=== PATIENT | female | born 1945 | race Caucasian/White ===

== ENCOUNTER 2016-06-06 01:54 | Emergency (ER) | payer BC, OTHER ==
[~2016-06-06] VITALS: Ht 167.6 cm; Wt 81.6 kg
[~2016-06-06 01:54] MED LIST: INSU100I20 SQ; INSU200I SQ
[2016-06-06 02:02] VITALS: BP 151/99; PULSE 116; RESP 15; TEMP 97.9; O2SAT 99
--- NOTE | 2016-06-06 03:05 | NUR ---
Placed in room 2 . Placed on rotoprinter, blood pressure machine and pulse oximeter. To gown for exam. Side rails up.
--- NOTE | 2016-06-06 03:10 | NUR ---
Pt presents to ED for medical clearance, pt stated she took 28 units of humalog instead of Rx dose of 14. A&Ox4, denies SOB or chestpain, denies N/V/D. Skin dry and intact. Will continue to monitor
--- NOTE | 2016-06-06 03:55 | NUR ---
MD Gomez at bedside examining pt
[2016-06-06 04:32] VITALS: BP 146/87; PULSE 97; RESP 16; TEMP 97.6; O2SAT 98
--- NOTE | 2016-06-06 04:32 | NUR ---
Patient given written and verbal discharge instructions and verbalizes understanding. ER MD Gomez discussed with patient the results and treatment provided. Patient in stable condition. ID arm band removed. No Rx given. Patient educated on pain management and to follow up with PMD. Pain Scale 0/10 Opportunity for questions provided and answered.
== END 2016-06-06 04:32 | disposition home or self-care (01) ==
LOC: SED 01:54
DX: T38.3X1A Poisoning by insulin and oral hypoglycemic [antidiabetic] drugs, accidental (unintentional), initial encounter (principal); E11.9 Type 2 diabetes mellitus without complications; I48.91 Unspecified atrial fibrillation; Z88.0 Allergy status to penicillin; Z79.4 Long term (current) use of insulin; Y92.89 Other specified places as the place of occurrence of the external cause
CPT/HCPCS: 82962; 99282

== ENCOUNTER 2016-11-23 18:07 | Inpatient (IN) | payer BC, OTHER ==
[~2016-11-23] VITALS: Ht 165.1 cm; Wt 81.6 kg
[2016-11-23 18:15] VITALS: BP_SYST 127
[2016-11-23] MEDS ORDERED: MORPHINE 4 MG/ML INJ. SYRINGE IVP ONE (18:45)
[2016-11-23] MEDS ORDERED: DIPHENHYDRAMINE INJ 50 MG/ML VIAL IVP ONE (18:45)
[2016-11-23] MEDS ORDERED: VANCOMYCIN HCL 1,000 MG in NS 250 ML IV ONE (18:45)
[2016-11-23 19:15] LABS: BILIRUBIN,URINE NEGATIVE (NEGATIVE); BLOOD, URINE NEGATIVE (NEGATIVE); CLARITY/URINE CLEAR (CLEAR); COLOR,URINE YELLOW (YELLOW); GLUCOSE,URINE 3+ (NEGATIVE); KETONES,URINE 1+ (NEGATIVE); LEUKOCYTE ESTERASE ,URINE NEGATIVE (NEGATIVE); NITRITE, URINE NEGATIVE (NEGATIVE); PROTEIN URINE NEGATIVE (NEGATIVE); UROBILINOGEN,URINE 0.2 (0.2-1.0)
[2016-11-23] MEDS ORDERED: VANCOMYCIN HCL 1000 MG/VIAL IV ONE ×2 (19:23→19:31)
[2016-11-23 19:42] LABS: RBC,URINE NONE SEEN /HPF (0-3)
[2016-11-23 19:43] LABS: BACTERIA,URINE MANY /HPF (None Seen); MUCUS,URINE None Seen /LPF (None Seen); YEAST,URINE Moderate /HPF (None Seen)
[2016-11-23 19:46] LABS: BASOPHILS % (AUTO) 0.2 % (0.0-2.0); EOSINOPHILS % (AUTO) 0.1 % (0.0-4.0); HEMATOCRIT 34.7 % (36-48); HEMOGLOBIN 11.6 g/dL (12.0-16.0); LYMPHOCYTES # (AUTO) 0.7 K/uL (1.0-5.5); MEAN CORPUSCULAR HEMOGLOBIN 32 pg (27-31); MEAN CORPUSCULAR HGB CONC 33 % (32-36); MEAN CORPUSCULAR VOLUME 96 fL (79.0-98.0); MONOCYTES # (AUTO) 0.7 K/uL (0.0-1.0); MONOCYTES % (AUTO) 4.9 % (1.7-9.3); NEUTROPHILS % (AUTO) 89.8 % (40.0-70.0); PLATELET COUNT (AUTO) 134 K/uL (130-430); RED BLOOD CELL COUNT(AUTO) 3.62 MIL/uL (4.2-6.2); RED CELL DISTRIBUTION WIDTH 12.2 % (9.0-15.0); WHITE BLOOD COUNT (AUTO) 14.4 K/uL (4.8-10.8)
[2016-11-23 20:04] LABS: ALANINE AMINOTRANSFERASE 21 U/L (12-78); ALBUMIN 2.9 g/dL (3.4-4.8); ANION GAP 11 (5-15); ASPARTATE AMINOTRANSFERASE 14 U/L (10-37); CALCIUM 8.3 mg/dL (8.4-11.0); CHLORIDE 103 mmol/L (98-107); CREATININE 1.71 mg/dL (0.55-1.30); LIPASE 169 U/L (73-393); POTASSIUM 3.8 mmol/L (3.5-5.1); SODIUM SERUM 135 mmol/L (136-145); TOTAL BILIRUBIN 1.7 mg/dL (0.0-1.0)
[2016-11-23 20:06] LABS: INR 1.2 (0.8-1.2); PROTHROMBIN TIME 13.1 SECS (9.5-12.5)
[2016-11-23] MEDS ORDERED: RIVA15TA PO (20:13)
[2016-11-23] MEDS ORDERED: METO50TA7 PO (20:13)
[2016-11-23] MEDS ORDERED: MECL12.584 PO (20:13)
[2016-11-23] MEDS ORDERED: FLEC50TA2 PO (20:13)
[2016-11-23] MEDS ORDERED: LORA10TA7 PO (20:13)
[2016-11-23] MEDS ORDERED: VERA120C2 PO (20:13)
[2016-11-23 20:27] LABS: GLUCOSE 524 mg/dL (70-99)
[2016-11-23] MEDS ORDERED: NACL 0.9% 1,000 ML IV ONE (20:30)
[2016-11-23] MEDS ORDERED: INSULIN REGULAR, HUMAN 10 UNITS/0.1 ML INJ IVP ONE (20:30)
[2016-11-23 20:52] LABS: UREA NITROGEN, BLOOD 33 mg/dL (8-21)
[2016-11-23 21:35] VITALS: BP_SYST 125
[2016-11-23] MEDS: NORMAL SALINE 5 ML DISP.SYRIN IVF SCH (23:03)
[2016-11-23 23:30] VITALS: BP_SYST 131
[2016-11-23] MEDS: INSULIN ASPART 100 UNITS/ML, 10 ML VIAL (NovoLOG) SUBCUT PRN (23:57)
[2016-11-24 04:02] VITALS: BP_SYST 135
[2016-11-24] MEDS: NORMAL SALINE 5 ML DISP.SYRIN IVF SCH ×3 (06:43→21:59)
[2016-11-24] MEDS: INSULIN ASPART 100 UNITS/ML, 10 ML VIAL (NovoLOG) SUBCUT PRN ×3 (06:47→17:41)
[2016-11-24 08:46] VITALS: BP_SYST 134
[2016-11-24] MEDS: VERAPAMIL HCL 120 MG TABLET.SA PO SCH (08:53)
[2016-11-24] MEDS: METOPROLOL SUCCINATE 50 MG TAB.SR.24H (TOPROL XL) PO SCH (08:53)
[2016-11-24 09:47] LABS: BASOPHILS # (AUTO) 0.1 K/uL (0.0-0.2); BASOPHILS % (AUTO) 0.6 % (0.0-2.0); EOSINOPHILS % (AUTO) 0.2 % (0.0-4.0); HEMATOCRIT 36.1 % (36-48); HEMOGLOBIN 12.2 g/dL (12.0-16.0); LYMPHOCYTES # (AUTO) 0.8 K/uL (1.0-5.5); LYMPHOCYTES % (AUTO) 5.3 % (20.5-51.5); MEAN CORPUSCULAR HEMOGLOBIN 32 pg (27-31); MEAN CORPUSCULAR HGB CONC 34 % (32-36); MEAN CORPUSCULAR VOLUME 95 fL (79.0-98.0); MONOCYTES # (AUTO) 1.1 K/uL (0.0-1.0); MONOCYTES % (AUTO) 6.8 % (1.7-9.3); NEUTROPHILS # (AUTO) 13.7 K/uL (1.8-7.7); NEUTROPHILS % (AUTO) 87.1 % (40.0-70.0); PLATELET COUNT (AUTO) 126 K/uL (130-430); RED CELL DISTRIBUTION WIDTH 12.3 % (9.0-15.0)
[2016-11-24 09:48] LABS: WHITE BLOOD COUNT (AUTO) 15.7 K/uL (4.8-10.8)
[2016-11-24 09:54] LABS: ALANINE AMINOTRANSFERASE 20 U/L (12-78); ALBUMIN 2.7 g/dL (3.4-4.8); ASPARTATE AMINOTRANSFERASE 14 U/L (10-37); CALCIUM 8.6 mg/dL (8.4-11.0); CHLORIDE 106 mmol/L (98-107); GLUCOSE 350 mg/dL (70-99); POTASSIUM 3.7 mmol/L (3.5-5.1); SODIUM SERUM 137 mmol/L (136-145); TOTAL BILIRUBIN 1.5 mg/dL (0.0-1.0); UREA NITROGEN, BLOOD 22 mg/dL (8-21)
[2016-11-24 09:58] LABS: ANION GAP 8 (5-15)
[2016-11-24] MEDS: RIVAROXABAN 15 MG TABLET PO SCH (11:40)
[2016-11-24 15:24] VITALS: BP_SYST 115
[2016-11-24] MEDS: CEFEPIME 1 GM in D5W 50 ML IV SCH (16:22)
[2016-11-24] MEDS: VANCOMYCIN HCL 1,250 MG in NS 250 ML IV SCH (17:36)
[2016-11-24 19:40] VITALS: BP_SYST 110
[2016-11-25] VITALS: BP_SYST 109
[2016-11-25] MEDS: INSULIN ASPART 100 UNITS/ML, 10 ML VIAL (NovoLOG) SUBCUT PRN ×5 (00:22→23:46)
[2016-11-25] MEDS: CEFEPIME 1 GM in D5W 50 ML IV SCH ×2 (03:18→15:12)
[2016-11-25 04:00] VITALS: BP_SYST 136
[2016-11-25] MEDS: NORMAL SALINE 5 ML DISP.SYRIN IVF SCH ×3 (06:57→22:31)
[2016-11-25 08:15] VITALS: BP_SYST 126
[2016-11-25] MEDS: METOPROLOL SUCCINATE 50 MG TAB.SR.24H (TOPROL XL) PO SCH (08:31)
[2016-11-25] MEDS: VERAPAMIL HCL 120 MG TABLET.SA PO SCH (08:31)
[2016-11-25 10:00] VITALS: BP_SYST 126
[2016-11-25] MEDS ORDERED: LR 1,000 ML IV SCH (11:14)
[2016-11-25] MEDS ORDERED: MEPERIDINE HCL/PF 25 MG/ML DISP.SYRIN IVP PRN (11:15)
[2016-11-25] MEDS ORDERED: HYDROmorphone 1 MG INJ. 1 MG/ML AMPUL IVP PRN (11:15)
[2016-11-25] MEDS ORDERED: HYDROmorphone 2 MG/ML VIAL IVP PRN ×2 (11:15)
[2016-11-25 12:15] VITALS: BP_SYST 137
[2016-11-25] MEDS: RIVAROXABAN 15 MG TABLET PO SCH (12:29)
[2016-11-25] MEDS: VANCOMYCIN HCL 1,250 MG in NS 250 ML IV SCH (17:53)
[2016-11-25 20:00] VITALS: BP_SYST 111
[2016-11-26 01:21] VITALS: BP_SYST 137
[2016-11-26] MEDS: CEFEPIME 1 GM in D5W 50 ML IV SCH ×2 (02:40→14:32)
[2016-11-26 03:41] VITALS: BP_SYST 140
[2016-11-26] MEDS: INSULIN ASPART 100 UNITS/ML, 10 ML VIAL (NovoLOG) SUBCUT PRN ×3 (05:15→17:18)
[2016-11-26] MEDS: NORMAL SALINE 5 ML DISP.SYRIN IVF SCH ×3 (05:16→22:10)
[2016-11-26 06:41] LABS: BASOPHILS % (AUTO) 0.4 % (0.0-2.0); EOSINOPHILS # (AUTO) 0.1 K/uL (0.0-0.4); EOSINOPHILS % (AUTO) 1.1 % (0.0-4.0); HEMATOCRIT 33.4 % (36-48); HEMOGLOBIN 11.1 g/dL (12.0-16.0); LYMPHOCYTES # (AUTO) 1.1 K/uL (1.0-5.5); LYMPHOCYTES % (AUTO) 12.6 % (20.5-51.5); MEAN CORPUSCULAR HEMOGLOBIN 32 pg (27-31); MEAN CORPUSCULAR HGB CONC 33 % (32-36); MONOCYTES # (AUTO) 0.7 K/uL (0.0-1.0); MONOCYTES % (AUTO) 7.5 % (1.7-9.3); NEUTROPHILS # (AUTO) 7.2 K/uL (1.8-7.7); NEUTROPHILS % (AUTO) 78.4 % (40.0-70.0); PLATELET COUNT (AUTO) 154 K/uL (130-430); RED BLOOD CELL COUNT(AUTO) 3.44 MIL/uL (4.2-6.2); RED CELL DISTRIBUTION WIDTH 12.3 % (9.0-15.0); WHITE BLOOD COUNT (AUTO) 9.1 K/uL (4.8-10.8)
[2016-11-26 07:03] LABS: MEAN CORPUSCULAR VOLUME 97 fL (79.0-98.0)
[2016-11-26 08:09] VITALS: BP_SYST 138
[2016-11-26] MEDS: RIVAROXABAN 15 MG TABLET PO SCH (08:43)
[2016-11-26] MEDS: VERAPAMIL HCL 120 MG TABLET.SA PO SCH (08:43)
[2016-11-26] MEDS: METOPROLOL SUCCINATE 50 MG TAB.SR.24H (TOPROL XL) PO SCH (08:44)
[2016-11-26 12:10] VITALS: BP_SYST 133
[2016-11-26 16:00] VITALS: BP_SYST 126
[2016-11-26] MEDS: VANCOMYCIN HCL 1,250 MG in NS 250 ML IV SCH (17:11)
[2016-11-26 20:00] VITALS: BP_SYST 123
[2016-11-26] MEDS: MUPIROCIN 2% TOPICAL OINTMENT 22 GM TP SCH (20:49)
[2016-11-27] MEDS: INSULIN ASPART 100 UNITS/ML, 10 ML VIAL (NovoLOG) SUBCUT PRN ×4 (00:04→17:09)
[2016-11-27 01:19] VITALS: BP_SYST 136
[2016-11-27] MEDS: CEFEPIME 1 GM in D5W 50 ML IV SCH ×2 (03:11→14:19)
[2016-11-27 03:19] VITALS: BP_SYST 138
[2016-11-27] MEDS: NORMAL SALINE 5 ML DISP.SYRIN IVF SCH ×2 (06:12→14:15)
[2016-11-27 08:01] VITALS: BP_SYST 127
[2016-11-27] MEDS: METOPROLOL SUCCINATE 50 MG TAB.SR.24H (TOPROL XL) PO SCH (08:41)
[2016-11-27] MEDS: RIVAROXABAN 15 MG TABLET PO SCH (08:41)
[2016-11-27] MEDS: VERAPAMIL HCL 120 MG TABLET.SA PO SCH (08:42)
[2016-11-27] MEDS: MUPIROCIN 2% TOPICAL OINTMENT 22 GM TP SCH (08:42)
[2016-11-27 12:29] VITALS: BP_SYST 126
[2016-11-27 14:56] VITALS: BP_SYST 126
[2016-11-27 16:43] VITALS: BP_SYST 118
== END 2016-11-27 17:33 | disposition home or self-care (01) | DRG 571 ==
LOC: SED 18:07 → SMU 20:17
PROC: 0JB80ZZ Excision of Abdomen Subcutaneous Tissue and Fascia, Open Approach (ICD-10-PCS; principal; 2016-11-25 10:30)
DX: L02.211 Cutaneous abscess of abdominal wall (principal); N39.0 Urinary tract infection, site not specified; E11.22 Type 2 diabetes mellitus with diabetic chronic kidney disease; I48.2 Chronic atrial fibrillation; B95.62 Methicillin resistant Staphylococcus aureus infection as the cause of diseases classified elsewhere; E66.9 Obesity, unspecified; I12.9 Hypertensive chronic kidney disease with stage 1 through stage 4 chronic kidney disease, or unspecified chronic kidney disease; N18.2 Chronic kidney disease, stage 2 (mild); Z79.4 Long term (current) use of insulin; Z88.0 Allergy status to penicillin
CPT/HCPCS: 36415; 71010; 80053; 81000-TC; 82962; 83605; 83690-TC; 85025; 85610-TC; 87040-TC; 87070; 87070-TC; 87075-TC; 87081; 87086; 87186-TC; 88304; 88305; 93005; 94010; 94760; 96365; 96366; 96375; 99285; J0692; J1200; J1815; J2270; J3370; J7030; J7050; J7060

== ENCOUNTER 2017-08-03 18:04 | Inpatient (IN) | payer BC, OTHER ==
[~2017-08-03] VITALS: Ht 165.1 cm; Wt 80.7 kg
[2017-08-03 18:04] VITALS: BP_SYST 133
[~2017-08-03 18:04] MED LIST changes: +FLEC50TA2 PO; +LORA10TA7 PO; +MECL12.584 PO; +METO50TA7 PO; +RIVA15TA PO; +VERA120C2 PO
[2017-08-03] MEDS ORDERED: ASPIRIN 81 MG TAB.CHEW PO ONE (18:15)
[2017-08-03] MEDS ORDERED: ALBI50PE SQ (18:21)
[2017-08-03 18:28] LABS: BASOPHILS # (AUTO) 0.2 K/uL (0.0-0.2); BASOPHILS % (AUTO) 1.7 % (0.0-2.0); EOSINOPHILS # (AUTO) 0.2 K/uL (0.0-0.4); HEMATOCRIT 37.5 % (36-48); HEMOGLOBIN 12.8 g/dL (12.0-16.0); LYMPHOCYTES # (AUTO) 0.9 K/uL (1.0-5.5); LYMPHOCYTES % (AUTO) 9.7 % (20.5-51.5); MEAN CORPUSCULAR HEMOGLOBIN 33 pg (27-31); MEAN CORPUSCULAR HGB CONC 34 % (32-36); MEAN CORPUSCULAR VOLUME 98 fL (79.0-98.0); MONOCYTES # (AUTO) 0.5 K/uL (0.0-1.0); MONOCYTES % (AUTO) 5.2 % (1.7-9.3); NEUTROPHILS # (AUTO) 7.7 K/uL (1.8-7.7); NEUTROPHILS % (AUTO) 81.4 % (40.0-70.0); PLATELET COUNT (AUTO) 207 K/uL (130-430); RED BLOOD CELL COUNT(AUTO) 3.83 MIL/uL (4.2-6.2); RED CELL DISTRIBUTION WIDTH 12.8 % (9.0-15.0); WHITE BLOOD COUNT (AUTO) 9.5 K/uL (4.8-10.8)
[2017-08-03 18:44] LABS: ANION GAP 8 (5-15); CALCIUM 8.9 mg/dL (8.4-11.0); CHLORIDE 100 mmol/L (98-107); CREATININE 1.78 mg/dL (0.55-1.30); GLUCOSE 343 mg/dL (70-99); POTASSIUM 4.8 mmol/L (3.5-5.1); SODIUM SERUM 131 mmol/L (136-145); UREA NITROGEN, BLOOD 35 mg/dL (8-21)
[2017-08-03 18:48] LABS: INR 1.1 (0.8-1.2); PROTHROMBIN TIME 11.3 SECS (9.5-12.5)
[2017-08-03 18:49] LABS: ALANINE AMINOTRANSFERASE 117 U/L (12-78); ALBUMIN 3.1 g/dL (3.4-4.8); ASPARTATE AMINOTRANSFERASE 164 U/L (10-37); TOTAL BILIRUBIN 0.5 mg/dL (0.0-1.0)
[2017-08-03] MEDS ORDERED: INSULIN REGULAR, HUMAN 10 UNITS/0.1 ML INJ IVP ONE (19:00)
[2017-08-03 19:34] VITALS: BP_SYST 92
[2017-08-03] MEDS ORDERED: MECLIZINE HCL 25 MG TABLET (ANITVERT) PO PRN (20:00)
[2017-08-03] MEDS ORDERED: LORATADINE 10 MG TABLET PO SCH (20:00)
[2017-08-03] MEDS ORDERED: DEXTROSE 50% JECT 50 ML DISP.SYRIN IVP PRN (20:15)
[2017-08-03] MEDS ORDERED: QUEtiapine FUMARATE 25 MG TABLET PO SCH (20:15)
[2017-08-03] MEDS ORDERED: ACETAMINOPHEN 325 MG TABLET PO PRN (20:15)
[2017-08-03] MEDS: FLECAINIDE ACETATE 50 MG TABLET (TAMBOCOR) PO SCH (21:00)
[2017-08-03] MEDS: INSULIN REGULAR, HUMAN 100 UNITS/ML, 10 ML VIAL (novoLIN R) SUBCUT PRN (21:02)
[2017-08-03] MEDS ORDERED: FLECAINIDE ACETATE 50 MG TABLET (TAMBOCOR) ONE (21:31)
[2017-08-04 01:32] LABS: BILIRUBIN,URINE NEGATIVE (NEGATIVE); BLOOD, URINE 2+ (NEGATIVE); CLARITY/URINE SL HAZY (CLEAR); COLOR,URINE YELLOW (YELLOW); GLUCOSE,URINE 3+ (NEGATIVE); KETONES,URINE NEGATIVE (NEGATIVE); LEUKOCYTE ESTERASE ,URINE TRACE (NEGATIVE); NITRITE, URINE NEGATIVE (NEGATIVE); PH,URINE 5.5 (5.0-8.0); PROTEIN URINE NEGATIVE (NEGATIVE); UROBILINOGEN,URINE 0.2 (0.2-1.0)
[2017-08-04 01:46] VITALS: BP_SYST 134
[2017-08-04 01:52] LABS: BACTERIA,URINE FEW /HPF (None Seen)
[2017-08-04 01:54] LABS: YEAST,URINE Moderate /HPF (None Seen)
[2017-08-04 02:15] VITALS: BP_SYST 126
[2017-08-04] MEDS: INSULIN REGULAR, HUMAN 100 UNITS/ML, 10 ML VIAL (novoLIN R) SUBCUT PRN ×4 (06:04→21:04)
[2017-08-04 07:37] LABS: BASOPHILS # (AUTO) 0.1 K/uL (0.0-0.2); BASOPHILS % (AUTO) 0.6 % (0.0-2.0); EOSINOPHILS # (AUTO) 0.3 K/uL (0.0-0.4); EOSINOPHILS % (AUTO) 3.1 % (0.0-4.0); HEMATOCRIT 37.2 % (36-48); HEMOGLOBIN 12.6 g/dL (12.0-16.0); LYMPHOCYTES # (AUTO) 1.9 K/uL (1.0-5.5); LYMPHOCYTES % (AUTO) 22.6 % (20.5-51.5); MEAN CORPUSCULAR HEMOGLOBIN 34 pg (27-31); MEAN CORPUSCULAR HGB CONC 34 % (32-36); MONOCYTES # (AUTO) 0.7 K/uL (0.0-1.0); MONOCYTES % (AUTO) 7.7 % (1.7-9.3); NEUTROPHILS # (AUTO) 5.5 K/uL (1.8-7.7); PLATELET COUNT (AUTO) 166 K/uL (130-430); RED BLOOD CELL COUNT(AUTO) 3.73 MIL/uL (4.2-6.2); RED CELL DISTRIBUTION WIDTH 12.9 % (9.0-15.0); WHITE BLOOD COUNT (AUTO) 8.5 K/uL (4.8-10.8)
[2017-08-04 08:00] VITALS: BP_SYST 139
[2017-08-04 08:19] LABS: ANION GAP 8 (5-15); ASPARTATE AMINOTRANSFERASE 65 U/L (10-37); CALCIUM 9.2 mg/dL (8.4-11.0); CHLORIDE 103 mmol/L (98-107); CREATININE 1.17 mg/dL (0.55-1.30); GLUCOSE 134 mg/dL (70-99); POTASSIUM 3.8 mmol/L (3.5-5.1); SODIUM SERUM 135 mmol/L (136-145); TOTAL BILIRUBIN 0.7 mg/dL (0.0-1.0); UREA NITROGEN, BLOOD 28 mg/dL (8-21)
[2017-08-04 08:20] LABS: ALANINE AMINOTRANSFERASE 97 U/L (12-78); CHOLESTEROL 186 mg/dL (<200); HDL CHOLESTEROL 48 mg/dL (>55); LDL CHOLESTEROL 110 mg/dL (<100); THYROID STIMULATING HORMONE 1.53 uIu/mL (0.34-4.82); TRIGLYCERIDES 163 mg/dL (30-150)
[2017-08-04 08:30] LABS: MEAN CORPUSCULAR VOLUME 100 fL (79.0-98.0)
[2017-08-04] MEDS ORDERED: METOPROLOL SUCCINATE 50 MG TAB.SR.24H (TOPROL XL) PO SCH (09:00)
[2017-08-04] MEDS: RIVAROXABAN 15 MG TABLET PO SCH (09:13)
[2017-08-04] MEDS: VERAPAMIL HCL 120 MG TABLET.SA PO SCH (09:14)
[2017-08-04] MEDS: FLECAINIDE ACETATE 50 MG TABLET (TAMBOCOR) PO SCH ×2 (09:15→21:02)
[2017-08-04 12:14] VITALS: BP_SYST 133
[2017-08-04 16:50] VITALS: BP_SYST 117
[2017-08-04 20:00] VITALS: BP_SYST 138
[2017-08-05] VITALS: BP_SYST 108
[2017-08-05 08:00] VITALS: BP_SYST 142
[2017-08-05] MEDS: VERAPAMIL HCL 120 MG TABLET.SA PO SCH (08:43)
[2017-08-05] MEDS: RIVAROXABAN 15 MG TABLET PO SCH (08:44)
[2017-08-05] MEDS: FLECAINIDE ACETATE 50 MG TABLET (TAMBOCOR) PO SCH ×2 (08:44→20:32)
[2017-08-05 11:29] VITALS: BP_SYST 139
[2017-08-05] MEDS: INSULIN REGULAR, HUMAN 100 UNITS/ML, 10 ML VIAL (novoLIN R) SUBCUT PRN ×3 (11:34→20:37)
[2017-08-05 16:10] VITALS: BP_SYST 124
[2017-08-05 19:49] VITALS: BP_SYST 117
[2017-08-06 00:14] VITALS: BP_SYST 134
[2017-08-06] MEDS: INSULIN REGULAR, HUMAN 100 UNITS/ML, 10 ML VIAL (novoLIN R) SUBCUT PRN ×3 (06:29→22:03)
[2017-08-06] MEDS: FLECAINIDE ACETATE 50 MG TABLET (TAMBOCOR) PO SCH ×2 (07:55→21:54)
[2017-08-06] MEDS: VERAPAMIL HCL 120 MG TABLET.SA PO SCH (07:55)
[2017-08-06] MEDS: RIVAROXABAN 15 MG TABLET PO SCH (07:56)
[2017-08-06 08:00] VITALS: BP_SYST 151
[2017-08-06] MEDS ORDERED: BARIUM SULFATE 135 ML SUSP.RECON (E-Z-HD) PO ONE (09:03)
[2017-08-06 11:41] LABS: BILIRUBIN,URINE NEGATIVE (NEGATIVE); CLARITY/URINE CLEAR (CLEAR); COLOR,URINE YELLOW (YELLOW); GLUCOSE,URINE 3+ (NEGATIVE); KETONES,URINE NEGATIVE (NEGATIVE); LEUKOCYTE ESTERASE ,URINE NEGATIVE (NEGATIVE); NITRITE, URINE NEGATIVE (NEGATIVE); PH,URINE 5.5 (5.0-8.0); PROTEIN URINE NEGATIVE (NEGATIVE); UROBILINOGEN,URINE 0.2 (0.2-1.0)
[2017-08-06 11:44] LABS: BLOOD, URINE TRACE (NEGATIVE)
[2017-08-06 11:53] LABS: BACTERIA,URINE FEW /HPF (None Seen); RBC,URINE 0-3 /HPF (0-3); WBC,URINE 0-3 /HPF (0-3)
[2017-08-06 11:54] LABS: MUCUS,URINE None Seen /LPF (None Seen)
[2017-08-06 12:20] VITALS: BP_SYST 126
[2017-08-06] MEDS ORDERED: LORATADINE 10 MG TABLET PO PRN (14:00)
[2017-08-06 16:12] VITALS: BP_SYST 123
[2017-08-06] MEDS: PHENAZOPYRIDINE HCL 100 MG TABLET PO SCH (18:51)
[2017-08-06 20:00] VITALS: BP_SYST 115
[2017-08-06] MEDS ORDERED: D5/0.45 NS 1,000 ML IV SCH (20:30)
[2017-08-06] MEDS: NITROFURANTOIN MONOHYD/M-CRYST 100 MG CAPSULE PO SCH (21:55)
[2017-08-07] VITALS (7 sets, daily range): BP systolic 115–149
[2017-08-07] MEDS: INSULIN REGULAR, HUMAN 100 UNITS/ML, 10 ML VIAL (novoLIN R) SUBCUT PRN ×4 (06:18→22:07)
[2017-08-07] MEDS ORDERED: fentaNYL CITRATE/PF 100 MCG/2 ML AMP ONE ×2 (06:30)
[2017-08-07] MEDS ORDERED: MIDAZOLAM HCL 5 MG/5 ML VIAL ONE ×2 (06:31)
[2017-08-07] MEDS ORDERED: SIMETHICONE 40 MG/0.6 ML ML ONE (06:32)
[2017-08-07 07:20] LABS: BASOPHILS # (AUTO) 0.1 K/uL (0.0-0.2); BASOPHILS % (AUTO) 1.7 % (0.0-2.0); EOSINOPHILS # (AUTO) 0.2 K/uL (0.0-0.4); EOSINOPHILS % (AUTO) 3.3 % (0.0-4.0); HEMATOCRIT 37.6 % (36-48); HEMOGLOBIN 12.9 g/dL (12.0-16.0); LYMPHOCYTES # (AUTO) 1.8 K/uL (1.0-5.5); LYMPHOCYTES % (AUTO) 27.4 % (20.5-51.5); MEAN CORPUSCULAR HEMOGLOBIN 34 pg (27-31); MEAN CORPUSCULAR HGB CONC 34 % (32-36); MEAN CORPUSCULAR VOLUME 99 fL (79.0-98.0); MONOCYTES # (AUTO) 0.5 K/uL (0.0-1.0); MONOCYTES % (AUTO) 8.4 % (1.7-9.3); NEUTROPHILS # (AUTO) 3.9 K/uL (1.8-7.7); NEUTROPHILS % (AUTO) 59.2 % (40.0-70.0); PLATELET COUNT (AUTO) 194 K/uL (130-430); RED BLOOD CELL COUNT(AUTO) 3.82 MIL/uL (4.2-6.2); RED CELL DISTRIBUTION WIDTH 12.8 % (9.0-15.0); WHITE BLOOD COUNT (AUTO) 6.5 K/uL (4.8-10.8)
[2017-08-07] MEDS ORDERED: fentaNYL CITRATE/PF 100 MCG/2 ML AMP IVP ONE (07:20)
[2017-08-07] MEDS ORDERED: MIDAZOLAM HCL 5 MG/5 ML VIAL IVP ONE ×2 (07:22→07:32)
[2017-08-07 07:52] LABS: ALANINE AMINOTRANSFERASE 47 U/L (12-78); ALBUMIN 3.1 g/dL (3.4-4.8); ANION GAP 2 (5-15); ASPARTATE AMINOTRANSFERASE 16 U/L (10-37); CALCIUM 9.6 mg/dL (8.4-11.0); CHLORIDE 101 mmol/L (98-107); CREATININE 1.06 mg/dL (0.55-1.30); GLUCOSE 176 mg/dL (70-99); POTASSIUM 4.3 mmol/L (3.5-5.1); SODIUM SERUM 133 mmol/L (136-145); TOTAL BILIRUBIN 0.7 mg/dL (0.0-1.0); UREA NITROGEN, BLOOD 23 mg/dL (8-21)
[2017-08-07] MEDS: NITROFURANTOIN MONOHYD/M-CRYST 100 MG CAPSULE PO SCH ×2 (09:09→22:03)
[2017-08-07] MEDS: PHENAZOPYRIDINE HCL 100 MG TABLET PO SCH ×3 (09:09→18:37)
[2017-08-07] MEDS: RIVAROXABAN 15 MG TABLET PO SCH (09:09)
[2017-08-07] MEDS: VERAPAMIL HCL 120 MG TABLET.SA PO SCH (09:10)
[2017-08-07] MEDS: FLECAINIDE ACETATE 50 MG TABLET (TAMBOCOR) PO SCH ×2 (09:11→22:04)
[2017-08-08] MEDS: INSULIN REGULAR, HUMAN 100 UNITS/ML, 10 ML VIAL (novoLIN R) SUBCUT PRN ×3 (06:22→17:19)
[2017-08-08 06:37] LABS: BASOPHILS # (AUTO) 0.1 K/uL (0.0-0.2); BASOPHILS % (AUTO) 1.4 % (0.0-2.0); EOSINOPHILS # (AUTO) 0.2 K/uL (0.0-0.4); EOSINOPHILS % (AUTO) 3.3 % (0.0-4.0); HEMATOCRIT 37.2 % (36-48); HEMOGLOBIN 12.7 g/dL (12.0-16.0); LYMPHOCYTES # (AUTO) 1.7 K/uL (1.0-5.5); LYMPHOCYTES % (AUTO) 27.4 % (20.5-51.5); MEAN CORPUSCULAR HEMOGLOBIN 34 pg (27-31); MEAN CORPUSCULAR HGB CONC 34 % (32-36); MEAN CORPUSCULAR VOLUME 99 fL (79.0-98.0); MONOCYTES # (AUTO) 0.5 K/uL (0.0-1.0); MONOCYTES % (AUTO) 7.9 % (1.7-9.3); NEUTROPHILS # (AUTO) 3.8 K/uL (1.8-7.7); PLATELET COUNT (AUTO) 179 K/uL (130-430); RED BLOOD CELL COUNT(AUTO) 3.76 MIL/uL (4.2-6.2); RED CELL DISTRIBUTION WIDTH 12.8 % (9.0-15.0); WHITE BLOOD COUNT (AUTO) 6.3 K/uL (4.8-10.8)
[2017-08-08 06:48] LABS: ANION GAP 5 (5-15); CALCIUM 9.2 mg/dL (8.4-11.0); CHLORIDE 102 mmol/L (98-107); CREATININE 0.92 mg/dL (0.55-1.30); GLUCOSE 182 mg/dL (70-99); POTASSIUM 3.9 mmol/L (3.5-5.1); SODIUM SERUM 134 mmol/L (136-145); UREA NITROGEN, BLOOD 18 mg/dL (8-21)
[2017-08-08 07:55] VITALS: BP_SYST 147
[2017-08-08] MEDS: NITROFURANTOIN MONOHYD/M-CRYST 100 MG CAPSULE PO SCH (08:44)
[2017-08-08] MEDS: RIVAROXABAN 15 MG TABLET PO SCH (08:44)
[2017-08-08] MEDS: PHENAZOPYRIDINE HCL 100 MG TABLET PO SCH ×3 (08:44→18:07)
[2017-08-08] MEDS: VERAPAMIL HCL 120 MG TABLET.SA PO SCH (08:45)
[2017-08-08] MEDS: FLECAINIDE ACETATE 50 MG TABLET (TAMBOCOR) PO SCH (08:46)
[2017-08-08 12:05] VITALS: BP_SYST 133
[2017-08-08 16:20] VITALS: BP_SYST 142
[2017-08-08 18:44] VITALS: BP_SYST 133
[2017-08-08 19:21] VITALS: BP_SYST 138
== END 2017-08-08 19:40 | disposition home health service (06) | DRG 309 ==
LOC: SED 18:04 → STU 19:09 → SMU 08-08 17:25
PROVIDERS: ADMIT Internal Medicine; ATTEND Internal Medicine
PROC: 0DB68ZX Excision of Stomach, Via Natural or Artificial Opening Endoscopic, Diagnostic (ICD-10-PCS; 2017-08-07)
PROC: 0D758ZZ Dilation of Esophagus, Via Natural or Artificial Opening Endoscopic (ICD-10-PCS; principal; 2017-08-07 07:00)
PROC: 0DB58ZX Excision of Esophagus, Via Natural or Artificial Opening Endoscopic, Diagnostic (ICD-10-PCS; 2017-08-07 07:00)
DX: I48.0 Paroxysmal atrial fibrillation (principal); N39.0 Urinary tract infection, site not specified; E11.22 Type 2 diabetes mellitus with diabetic chronic kidney disease; E11.65 Type 2 diabetes mellitus with hyperglycemia; E78.5 Hyperlipidemia, unspecified; I12.9 Hypertensive chronic kidney disease with stage 1 through stage 4 chronic kidney disease, or unspecified chronic kidney disease; R79.89 Other specified abnormal findings of blood chemistry; I25.10 Atherosclerotic heart disease of native coronary artery without angina pectoris; K22.2 Esophageal obstruction; F41.9 Anxiety disorder, unspecified; K29.70 Gastritis, unspecified, without bleeding; K31.7 Polyp of stomach and duodenum; N18.9 Chronic kidney disease, unspecified; Z79.01 Long term (current) use of anticoagulants; Z79.4 Long term (current) use of insulin; Z79.899 Other long term (current) drug therapy; Z88.0 Allergy status to penicillin
CPT/HCPCS: 36415; 43239; 71045; 74220-TC; 76700-TC; 80048; 80053; 80061; 81000-TC; 82550-TC; 82962; 83036; 84443-TC; 84484; 85025; 85610-TC; 85730-TC; 87081; 87086; 88305; 88313; 92610-GN; 93005; 96374; 99291; J1815; J2250; J3010

== ENCOUNTER 2018-07-17 02:01 | Emergency (ER) | payer BC, OTHER ==
[~2018-07-17] VITALS: Ht 165.1 cm; Wt 86.2 kg
[2018-07-17 02:01] VITALS: BP_SYST 121
[~2018-07-17 02:01] MED LIST changes: +ALBI50PE SQ; -METO50TA7 PO
--- NOTE | 2018-07-17 02:01 | NUR ---
Patient to ER bed 3 to gown for evaluation. Side rails up.
--- NOTE | 2018-07-17 02:10 | NUR ---
LEESA Frazier at bedside examining patient.
[2018-07-17] MEDS ORDERED: NACL 0.9% 1,000 ML IV ONE (02:30)
[2018-07-17] MEDS ORDERED: DIPHENHYDRAMINE HCL 25 MG CAPSULE PO ONE (02:30)
--- NOTE | 2018-07-17 02:30 | NUR ---
Patient came into ED C/O "feeling not like herself and thinks she may be having allergic reaction." Patient states that she started a new medication for her diabetes as well as vaginal estrogen cream. Patient states that she took both medications for the first time on Thursday and felt similar but symptoms resolved. She also stated both medications again today and she noticed flushing of the face and just filling not well. Medical Hx include hypertension, diabetes, atrial fibrillation. No other complaints and or injuries noted. VSS, no s/s of acute distress. Resting on gurney with rails up
[2018-07-17 02:41] LABS: BILIRUBIN,URINE NEGATIVE (NEGATIVE); CLARITY/URINE CLEAR (CLEAR); COLOR,URINE YELLOW (YELLOW); GLUCOSE,URINE TRACE (NEGATIVE); KETONES,URINE NEGATIVE (NEGATIVE); LEUKOCYTE ESTERASE ,URINE 2+ (NEGATIVE); NITRITE, URINE NEGATIVE (NEGATIVE); PH,URINE 5.5 (5.0-8.0); PROTEIN URINE NEGATIVE (NEGATIVE); UROBILINOGEN,URINE 0.2 (0.2-1.0)
[2018-07-17 02:43] LABS: BLOOD, URINE TRACE (NEGATIVE)
--- NOTE | 2018-07-17 02:45 | NUR ---
Portable X Ray bedside, pt in stable condition
[2018-07-17 02:46] LABS: BACTERIA,URINE FEW /HPF (None Seen)
[2018-07-17 02:50] LABS: BARBITURATE, URINE NEGATIVE (NEG <=200); BENZODIAZEPINE, URINE NEGATIVE (NEG <=150); CANNABINOID, URINE NEGATIVE (NEG <=50); COCAINE, URINE NEGATIVE (NEG <=150); METHAMPHETAMINES SCREEN,URINE NEGATIVE (NEG <=500); OPIATE, URINE NEGATIVE (NEG <=100); PHENCYCLIDINE SCREEN,URINE NEGATIVE (NEG <=25); UR TRICYCLIC ANTIDEPRESSANTS NEGATIVE (NEG <=300); URINE AMPHETAMINE NEGATIVE (NEG <=500); URINE METHADONE NEGATIVE (NEG <=200); URINE OXYCODONE SCREEN NEGATIVE (NEG <=100); URINE PROPOXYPHENE SCREEN NEGATIVE (NEG <=300)
[2018-07-17 03:13] LABS: BASOPHILS # (AUTO) 0.1 K/uL (0.0-0.2); EOSINOPHILS # (AUTO) 0.2 K/uL (0.0-0.4); EOSINOPHILS % (AUTO) 2.3 % (0.0-4.0); HEMATOCRIT 38.8 % (36-48); HEMOGLOBIN 12.8 g/dL (12.0-16.0); LYMPHOCYTES # (AUTO) 2.3 K/uL (1.0-5.5); LYMPHOCYTES % (AUTO) 26.9 % (20.5-51.5); MEAN CORPUSCULAR HEMOGLOBIN 32 pg (27-31); MEAN CORPUSCULAR HGB CONC 33 % (32-36); MEAN CORPUSCULAR VOLUME 96 fL (79.0-98.0); MONOCYTES # (AUTO) 0.8 K/uL (0.0-1.0); MONOCYTES % (AUTO) 9.9 % (1.7-9.3); NEUTROPHILS % (AUTO) 59.9 % (40.0-70.0); PLATELET COUNT (AUTO) 194 K/uL (130-430); RED BLOOD CELL COUNT(AUTO) 4.04 MIL/uL (4.2-6.2); RED CELL DISTRIBUTION WIDTH 14.5 % (9.0-15.0); WHITE BLOOD COUNT (AUTO) 8.4 K/uL (4.8-10.8)
--- NOTE | 2018-07-17 03:25 | NUR ---
Pt VSS, no s/s of acute distress. Resting on gurney with rails up
[2018-07-17 03:31] LABS: ANION GAP 11 (5-15); CALCIUM 9.1 mg/dL (8.4-11.0); CHLORIDE 105 mmol/L (98-107); CREATININE 1.24 mg/dL (0.55-1.30); GLUCOSE 125 mg/dL (70-99); POTASSIUM 3.7 mmol/L (3.5-5.1); SODIUM SERUM 139 mmol/L (136-145); UREA NITROGEN, BLOOD 44 mg/dL (8-21)
[2018-07-17 03:40] LABS: ALANINE AMINOTRANSFERASE 37 U/L (12-78); ALBUMIN 3.4 g/dL (3.4-4.8); ASPARTATE AMINOTRANSFERASE 23 U/L (10-37); TOTAL BILIRUBIN 0.5 mg/dL (0.0-1.0)
[2018-07-17 04:20] VITALS: BP_SYST 121
--- NOTE | 2018-07-17 04:20 | NUR ---
Patient given written and verbal discharge instructions and verbalizes understanding. ER MD discussed with patient the results and treatment provided. Patient in stable condition. ID arm band removed. IV catheter removed intact and dressing applied, no active bleeding. Patient educated on pain management and to follow up with PMD. Pain Scale 0/10. Opportunity for questions provided and answered.
== END 2018-07-17 04:20 | disposition home or self-care (01) ==
LOC: SED 02:01
DX: T78.40XA Allergy, unspecified, initial encounter (principal); I48.91 Unspecified atrial fibrillation; I12.9 Hypertensive chronic kidney disease with stage 1 through stage 4 chronic kidney disease, or unspecified chronic kidney disease; E11.22 Type 2 diabetes mellitus with diabetic chronic kidney disease; N18.9 Chronic kidney disease, unspecified; Z88.0 Allergy status to penicillin; Z79.899 Other long term (current) drug therapy; X58.XXXA Exposure to other specified factors, initial encounter
CPT/HCPCS: 36415; 71045; 80053; 80307; 81000; 84484; 85025; 87086; 93005; 99284; J7030; Q0163

== ENCOUNTER 2018-07-24 16:10 | Inpatient (IN) | payer BC, OTHER ==
[~2018-07-24] VITALS: Ht 157.5 cm; Wt 81.6 kg
[2018-07-24 16:10] VITALS: BP_SYST 147
--- NOTE | 2018-07-24 16:10 | NUR ---
BROUGHT BACK TO BED #7 VIA WHEELCHAIR AND PLACED IN BED. PT IS POOR HISTORIAN AND UNABLE TO REALLY STATE WHAT IS WRONG. SON AT BEDSIDE. REPORT GIVEN TO JESSICA
--- NOTE | 2018-07-24 16:12 | NUR ---
Pt brought by family member, A&Ox4, ambulatory , pt is weak, pt c/o of blood sugar being high and fluctuating to low, denies pain, respirations even and unlabored , cap refill <3, VSS, no N/V/D at this time.
--- NOTE | 2018-07-24 16:15 | NUR ---
Dr Lambert at bedside examining patient
[2018-07-24] MEDS ORDERED: NACL 0.9% 1,000 ML IV ONE ×2 (16:32→20:15)
[2018-07-24 17:15] LABS: BASOPHILS % (AUTO) 0.5 % (0.0-2.0); EOSINOPHILS # (AUTO) 0.1 K/uL (0.0-0.4); EOSINOPHILS % (AUTO) 1.1 % (0.0-4.0); HEMOGLOBIN 12.6 g/dL (12.0-16.0); LYMPHOCYTES # (AUTO) 1.1 K/uL (1.0-5.5); LYMPHOCYTES % (AUTO) 12.2 % (20.5-51.5); MEAN CORPUSCULAR HEMOGLOBIN 32 pg (27-31); MEAN CORPUSCULAR HGB CONC 33 % (32-36); MEAN CORPUSCULAR VOLUME 96 fL (79.0-98.0); MONOCYTES # (AUTO) 0.6 K/uL (0.0-1.0); MONOCYTES % (AUTO) 6.4 % (1.7-9.3); NEUTROPHILS # (AUTO) 7.3 K/uL (1.8-7.7); NEUTROPHILS % (AUTO) 79.8 % (40.0-70.0); PLATELET COUNT (AUTO) 200 K/uL (130-430); RED BLOOD CELL COUNT(AUTO) 3.97 MIL/uL (4.2-6.2); RED CELL DISTRIBUTION WIDTH 14.6 % (9.0-15.0); WHITE BLOOD COUNT (AUTO) 9.2 K/uL (4.8-10.8)
[2018-07-24 17:28] LABS: INR 1.2 (0.8-1.2); PROTHROMBIN TIME 11.7 SECS (9.5-12.5)
[2018-07-24 17:36] LABS: ANION GAP 6 (5-15); CHLORIDE 104 mmol/L (98-107); CREATININE 1.32 mg/dL (0.55-1.30); GLUCOSE 123 mg/dL (70-99); POTASSIUM 3.5 mmol/L (3.5-5.1); SODIUM SERUM 136 mmol/L (136-145); UREA NITROGEN, BLOOD 25 mg/dL (8-21)
[2018-07-24 17:41] LABS: ALANINE AMINOTRANSFERASE 29 U/L (12-78); AMYLASE 41 U/L (0-100); ASPARTATE AMINOTRANSFERASE 14 U/L (10-37); LIPASE 216 U/L (73-393); TOTAL BILIRUBIN 0.7 mg/dL (0.0-1.0)
[2018-07-24 18:01] LABS: BILIRUBIN,URINE NEGATIVE (NEGATIVE); CLARITY/URINE CLEAR (CLEAR); COLOR,URINE YELLOW (YELLOW); GLUCOSE,URINE 1+ (NEGATIVE); KETONES,URINE NEGATIVE (NEGATIVE); LEUKOCYTE ESTERASE ,URINE 2+ (NEGATIVE); NITRITE, URINE NEGATIVE (NEGATIVE); PROTEIN URINE NEGATIVE (NEGATIVE); UROBILINOGEN,URINE 0.2 (0.2-1.0)
[2018-07-24 18:04] LABS: BLOOD, URINE TRACE (NEGATIVE)
[2018-07-24 18:11] LABS: BACTERIA,URINE MODERATE /HPF (None Seen); WBC,URINE 50-80 /HPF (0-3)
[2018-07-24] MEDS ORDERED: DEXTROSE 50% JECT 50 ML DISP.SYRIN IVP ONE (18:15)
--- NOTE | 2018-07-24 18:17 | NUR ---
Pt c/o weakness and diaphoresis, BS 37 at this time, Dr Lambert notified, VSS,order received for Dextrose 50 %.
[2018-07-24] MEDS ORDERED: DEXTROSE 50% JECT 50 ML DISP.SYRIN ONE (18:27)
--- NOTE | 2018-07-24 18:35 | NUR ---
Pt A&Ox4, pt states she feels better after dextrose administration , VSS
[2018-07-24] MEDS ORDERED: INSU100I24 SQ (19:04)
--- NOTE | 2018-07-24 19:30 | NUR ---
Pt ambulated to bathroom on stable condition.
[2018-07-24 21:04] VITALS: BP_SYST 150
--- NOTE | 2018-07-24 21:04 | NUR ---
ADMISSION NOTE Received patient from ER via lidia, received report from EDITA LOPEZ. Patient admitted with diagnosis of UNCONTROLLED DIABETES. Patient oriented to hospital routine, call light, toileting and safety-patient verbalized understanding.
--- NOTE | 2018-07-24 21:06 | NUR ---
Patient will be admitted to care of Dr Miranda . Admitted to Tele unit. Will go to room 135. Belongings list completed. Summary report printed. Report will be given at bedside.
--- NOTE | 2018-07-24 22:00 | NUR ---
SBAR REPORT GIVEN TO EDITA SANCHEZ/DR. MIRANDA AT BEDSIDE SBAR report given to EDITA Sanchez, primary nurse for patient. Dr. Miranda at bedside.
[2018-07-24] MEDS: NACL 0.9% 1,000 ML IV SCH (23:42)
--- NOTE | 2018-07-25 00:11 | NUR ---
Rounds: Patient is asleep, does not show any acute distress. Breathing is even and unlabored on room air. Call light with patient, will continue monitoring.
[2018-07-25 01:05] VITALS: BP_SYST 151
--- NOTE | 2018-07-25 03:18 | NUR ---
Rounds: Patient is resting in bed, no distress. Breathing is even and unlabored on room air. Call light with patient, will continue monitoring.
[2018-07-25] MEDS: NACL 0.9% 1,000 ML IV SCH ×2 (05:56→20:41)
[2018-07-25] MEDS: INSULIN LISPRO SLIDING SCALE 100 UNITS/ML VIAL (humaLOG) SUBCUT PRN ×4 (05:59→20:50)
--- NOTE | 2018-07-25 06:06 | NUR ---
Closing note: Patient is resting in bed, no distress. Tolerating room air. IV fluids infusing well to right AC IV site. Blood sugar this AM is 175, administered 2 units insulin Humalog per sliding scale, patient educated on side effects, understanding verbalized. All needs met. Will endorse to preet RN.
[2018-07-25 06:50] LABS: BASOPHILS % (AUTO) 0.3 % (0.0-2.0); EOSINOPHILS # (AUTO) 0.1 K/uL (0.0-0.4); EOSINOPHILS % (AUTO) 0.8 % (0.0-4.0); HEMATOCRIT 38.1 % (36-48); HEMOGLOBIN 12.7 g/dL (12.0-16.0); LYMPHOCYTES # (AUTO) 1.7 K/uL (1.0-5.5); MEAN CORPUSCULAR HEMOGLOBIN 32 pg (27-31); MEAN CORPUSCULAR HGB CONC 33 % (32-36); MEAN CORPUSCULAR VOLUME 96 fL (79.0-98.0); MONOCYTES # (AUTO) 0.7 K/uL (0.0-1.0); NEUTROPHILS # (AUTO) 7.1 K/uL (1.8-7.7); NEUTROPHILS % (AUTO) 73.9 % (40.0-70.0); PLATELET COUNT (AUTO) 186 K/uL (130-430); RED BLOOD CELL COUNT(AUTO) 3.96 MIL/uL (4.2-6.2); RED CELL DISTRIBUTION WIDTH 14.5 % (9.0-15.0); WHITE BLOOD COUNT (AUTO) 9.6 K/uL (4.8-10.8)
--- NOTE | 2018-07-25 07:12 | NUR ---
received report at the bedside with the nite nurse. patient awake x 4. lungs bilaterally clear. has iv access rt ac #20. fluids infusing on well. no skin breakdown noted. no pain nor acute distress noted. bed in low position. call lights within reach. instructed to call for assistance. ambulatory.
[2018-07-25 07:26] LABS: ANION GAP 8 (5-15); CALCIUM 8.9 mg/dL (8.4-11.0); CHLORIDE 104 mmol/L (98-107); GLUCOSE 178 mg/dL (70-99); POTASSIUM 3.7 mmol/L (3.5-5.1); SODIUM SERUM 137 mmol/L (136-145); UREA NITROGEN, BLOOD 18 mg/dL (8-21)
[2018-07-25 07:37] LABS: ALANINE AMINOTRANSFERASE 29 U/L (12-78); ALBUMIN 2.8 g/dL (3.4-4.8); ASPARTATE AMINOTRANSFERASE 17 U/L (10-37); THYROID STIMULATING HORMONE 1.52 uIu/mL (0.34-4.82)
[2018-07-25 08:16] VITALS: BP_SYST 123
[2018-07-25] MEDS: RIVAROXABAN 15 MG TABLET PO SCH (09:25)
[2018-07-25] MEDS: VERAPAMIL HCL 120 MG TABLET.SA PO SCH (09:27)
[2018-07-25] MEDS: FLECAINIDE ACETATE 50 MG TABLET (TAMBOCOR) PO SCH ×2 (09:28→20:40)
--- NOTE | 2018-07-25 09:40 | NUR ---
due medication given at this time.
[2018-07-25] MEDS ORDERED: METOPROLOL TARTRATE 25 MG TABLET PO ONE (10:30)
[2018-07-25] MEDS ORDERED: FLUCONAZOLE 100 MG TABLET (DIFLUCAN) PO ONE (10:30)
--- NOTE | 2018-07-25 12:00 | NUR ---
lates bs 254mg/dl. coverage given.
[2018-07-25 12:28] VITALS: BP_SYST 127
--- NOTE | 2018-07-25 13:00 | NUR ---
eating lunch and watching tv.
--- NOTE | 2018-07-25 15:00 | NUR ---
sitting on the chair. no pain nor acute distress noted.
--- NOTE | 2018-07-25 15:06 | NUR ---
had 2 d cho procedure done has 60% EF.
[2018-07-25 17:13] VITALS: BP_SYST 112
--- NOTE | 2018-07-25 17:30 | NUR ---
LATEST BS 249MG/DL. COVERAGE GIVEN AT THIS TIME.
--- NOTE | 2018-07-25 18:00 | NUR ---
VOIDED X 3 TO THE BATHROOM. AMBULATORY
--- NOTE | 2018-07-25 19:20 | NUR ---
endorsed to incoming nurse Joaquín KOHLER
--- NOTE | 2018-07-25 20:00 | NUR ---
Initial note: Received report from preet RN. Patient is resting in bed, no distress. Alert and oriented x4. Tolerating room air. IV site to right AC is patent and benign. Call light with patient. Safety and fall precautions in place. Will continue with plan of care.
[2018-07-25 20:32] VITALS: BP_SYST 144
[2018-07-25] MEDS: LEVOFLOXACIN 500 MG/D5W 100 ML IV SCH (20:38)
[2018-07-25] MEDS: METOPROLOL TARTRATE 25 MG TABLET PO SCH (20:40)
--- NOTE | 2018-07-25 20:42 | NUR ---
Blood sugar: Patient's blood sugar is 223. Administered 4 units Humalog per sliding scale. Call light with patient, will continue to monitor.
--- NOTE | 2018-07-25 23:51 | NUR ---
Rounds: Patient is resting in bed, no distress. Breathing is even and unlabored on room air. Call light with patient, will continue monitoring.
[2018-07-26 00:57] VITALS: BP_SYST 126
[2018-07-26] MEDS: LORATADINE 10 MG TABLET PO PRN ×2 (02:29→08:35)
--- NOTE | 2018-07-26 02:33 | NUR ---
Rounds: Patient is asleep, no acute distress noted. Tolerating room air. Call light with patient, will continue to monitor.
[2018-07-26] MEDS: INSULIN LISPRO SLIDING SCALE 100 UNITS/ML VIAL (humaLOG) SUBCUT PRN ×4 (06:37→21:54)
[2018-07-26 06:41] LABS: BASOPHILS % (AUTO) 0.7 % (0.0-2.0); EOSINOPHILS # (AUTO) 0.1 K/uL (0.0-0.4); EOSINOPHILS % (AUTO) 1.5 % (0.0-4.0); HEMOGLOBIN 11.8 g/dL (12.0-16.0); LYMPHOCYTES # (AUTO) 1.7 K/uL (1.0-5.5); LYMPHOCYTES % (AUTO) 26.8 % (20.5-51.5); MEAN CORPUSCULAR HEMOGLOBIN 33 pg (27-31); MEAN CORPUSCULAR HGB CONC 34 % (32-36); MEAN CORPUSCULAR VOLUME 97 fL (79.0-98.0); MONOCYTES # (AUTO) 0.5 K/uL (0.0-1.0); MONOCYTES % (AUTO) 8.1 % (1.7-9.3); NEUTROPHILS % (AUTO) 62.9 % (40.0-70.0); PLATELET COUNT (AUTO) 167 K/uL (130-430); RED BLOOD CELL COUNT(AUTO) 3.63 MIL/uL (4.2-6.2); RED CELL DISTRIBUTION WIDTH 14.6 % (9.0-15.0); WHITE BLOOD COUNT (AUTO) 6.4 K/uL (4.8-10.8)
--- NOTE | 2018-07-26 06:43 | NUR ---
Closing note: Patient is sitting at edge of bed, just came back from using bathroom. No complaints of pain, shortness of breath, or dizziness. IV fluids infusing well. Blood sugar this AM is 197, administered 2 units Humalog per sliding scale. All needs met. Safety, fall precautions in place. Will endorse to preet KOHLER.
[2018-07-26 06:54] LABS: ANION GAP 6 (5-15); CALCIUM 8.9 mg/dL (8.4-11.0); CHLORIDE 107 mmol/L (98-107); CREATININE 1.06 mg/dL (0.55-1.30); GLUCOSE 192 mg/dL (70-99); SODIUM SERUM 138 mmol/L (136-145); UREA NITROGEN, BLOOD 20 mg/dL (8-21)
[2018-07-26 07:04] LABS: ALANINE AMINOTRANSFERASE 26 U/L (12-78); ALBUMIN 2.8 g/dL (3.4-4.8); ASPARTATE AMINOTRANSFERASE 18 U/L (10-37); TOTAL BILIRUBIN 1.1 mg/dL (0.0-1.0)
--- NOTE | 2018-07-26 07:56 | NUR ---
opening Note Report received from Joaquín BURROUGHS shift nurse. Patient is currently awake and alert X 4. She is currently a-fib o n the monitor. No c/o pain at the moment. IV is on the RAC 22g running NS@50. Call light is within reach and bed is in low position. Will continue to monitor.
[2018-07-26 08:08] VITALS: BP_SYST 142
[2018-07-26] MEDS: FLECAINIDE ACETATE 50 MG TABLET (TAMBOCOR) PO SCH ×2 (08:33→21:42)
[2018-07-26] MEDS: METOPROLOL TARTRATE 25 MG TABLET PO SCH ×2 (08:34→21:41)
[2018-07-26] MEDS: FLUCONAZOLE 100 MG TABLET (DIFLUCAN) PO SCH (08:34)
[2018-07-26] MEDS: VERAPAMIL HCL 120 MG TABLET.SA PO SCH (08:35)
[2018-07-26] MEDS: RIVAROXABAN 15 MG TABLET PO SCH (08:35)
--- NOTE | 2018-07-26 10:20 | NUR ---
Rounds Patient is resting in bed. Call light is within reach.
[2018-07-26 12:00] VITALS: BP_SYST 121
--- NOTE | 2018-07-26 12:37 | NUR ---
Rounds Patient is currently having lunch.
--- NOTE | 2018-07-26 14:27 | NUR ---
Rounds Patient is currently sleeping in bed. No signs of distress noted.
[2018-07-26 16:00] VITALS: BP_SYST 119
--- NOTE | 2018-07-26 16:49 | NUR ---
Rounds Patient is currently resting in bed. Call light is within reach.
--- NOTE | 2018-07-26 18:33 | NUR ---
Closing Note patient is currently eating dinner in bed.
--- NOTE | 2018-07-26 18:34 | NUR ---
Urine culture was collected and sent to lab. results are still pending. No signs of distress noted throughout the shift. Iv is on the RAC 22g SL. Call light is within reach and bed is in low position. Will endorse care to the oncoming nurse.
[2018-07-26 19:15] VITALS: BP_SYST 130
--- NOTE | 2018-07-26 19:15 | NUR ---
INITIAL NOTES: PATIENT IN BED AWAKE ,ORIENTED X4 DURING BEDSIDE REPORT. DENIES PAIN NOR SOB. VITAL SIGNS ARE WITHIN NORMAL LIMITS. SALINE LOCK SITE CLEAR.MILD OBESE. ROOM AIR. VERBALIZED WALKS SLOWLY TO BATHROOM WITHOUT PROBLEM BUT HAS TO SIT UP AT BEDSIDE FOR FEW MINS. THEN GETS UP. CALL LIGHT WITHIN REACH. BED IN LOW POSITION. WILL MONITOR CLOSELY.
--- NOTE | 2018-07-26 20:30 | NUR ---
VOID: SEEN WALKING TO BATHROOM TO URINATE. DOES NOT NEED ASSISTANCE. THIS TIME.
[2018-07-26] MEDS ORDERED: INSULIN GLARGINE 100 UNITS/ML 10 ML VIAL SUBCUT SCH (21:00)
[2018-07-26] MEDS: LEVOFLOXACIN 500 MG/D5W 100 ML IV SCH (21:40)
--- NOTE | 2018-07-26 21:45 | NUR ---
VOID; ASSISTED TO BATHROOM TO VOID DUE TO IV PUMP.
--- NOTE | 2018-07-26 21:45 | NUR ---
MEDS ADMIN/ BLOOD SUGAR DUE MEDS GIVEN. ACCU CHECK RESULT IS 323MG/DL. LANTUS AND HUMOLOG INSULIN GIVEN ORDERED ATFER EDUCATING ON INDICATIONS OF EACH.DENIES S/S OF HYPERGLYCEMIA.
--- NOTE | 2018-07-27 | NUR ---
ROUNDS: PATIENT RESTING QUIETELY DURING THIS ROUNDS.
[2018-07-27 00:10] VITALS: BP_SYST 132
--- NOTE | 2018-07-27 02:00 | NUR ---
ROUNDS: CONTINUE TO SLEEP. BREATHING PATTERN REGULAR.
--- NOTE | 2018-07-27 04:00 | NUR ---
VOID: WOKE UP TO VOID. ASSISTED FOR SAFETY.
[2018-07-27] MEDS: INSULIN LISPRO SLIDING SCALE 100 UNITS/ML VIAL (humaLOG) SUBCUT PRN ×2 (06:11→11:14)
--- NOTE | 2018-07-27 06:30 | NUR ---
CLOSING: BLOOD SUGAR 175MG/DL. COVERED WITH HUMOLOG 2 UNITS. SLEPT AT LONG INTERVALS,. NO ACUTE CARDIOPULMONARY DISTRESS. DENIES PAIN NOR SOB.ALL NEEDS WERE ATTENDED.
[2018-07-27 08:00] VITALS: BP_SYST 106
--- NOTE | 2018-07-27 08:00 | NUR ---
opening Note report received from [facility] shift nurse. Patient is currently awake and eating breakfast in bed. Currently SR w/ BBB on the monitor. IV is on the RAC 22g running NS@50. Will continue to monitor blood sugar.
[2018-07-27] MEDS: FLUCONAZOLE 100 MG TABLET (DIFLUCAN) PO SCH (09:03)
[2018-07-27] MEDS: LORATADINE 10 MG TABLET PO PRN (09:03)
[2018-07-27] MEDS: FLECAINIDE ACETATE 50 MG TABLET (TAMBOCOR) PO SCH (09:04)
[2018-07-27] MEDS: VERAPAMIL HCL 120 MG TABLET.SA PO SCH (09:04)
[2018-07-27] MEDS: METOPROLOL TARTRATE 25 MG TABLET PO SCH (09:04)
[2018-07-27] MEDS: RIVAROXABAN 15 MG TABLET PO SCH (09:05)
[2018-07-27] MEDS ORDERED: LEVO250T58 PO (09:41)
[2018-07-27] MEDS ORDERED: LEVOFLOXACIN 250 MG TABLET PO SCH (10:00)
--- NOTE | 2018-07-27 10:19 | NUR ---
MD rounds Dr. Miranda rounded on the patient. stated that the patient may be discharged today at 1600.
--- NOTE | 2018-07-27 10:29 | NUR ---
Nutrition Update Dago Scale 18 noted. Pt admitted for uncontrolled DM. Diet: [facility] [place] BMI: 32.9 kg/m2 RD to follow per nutrition care standards.
--- NOTE | 2018-07-27 12:25 | NUR ---
Rounds Patient is currently having lunch.
[2018-07-27 12:28] VITALS: BP_SYST 131
--- NOTE | 2018-07-27 14:26 | NUR ---
Rounds Patient is currently sitting up in a chair. No signs of distress noted. Will continue to monitor.
[2018-07-27 15:35] VITALS: BP_SYST 142
--- NOTE | 2018-07-27 16:20 | NUR ---
Rounds patient is currently resting in bed. Call light is within reach.
[2018-07-27 16:49] VITALS: BP_SYST 106
--- NOTE | 2018-07-27 17:00 | NUR ---
transition of care note Patient given medication reconciliation form and D/C instructions. Exit Care provided. Patient verbalized understanding. MD discussed with patient the results and treatment provided. Ambulatory with steady gait for discharge to home. Patient in stable condition, ID band removed. IV catheter removed, intact and dressing applied, no active bleeding. Rx of Levaquin given. Patient educated on pain management. All belongings sent with patient.
--- NOTE | 2018-08-02 11:10 | NUR ---
Discharge Follow Up Phone Call [employer] BRICK phoned patient, . Patient stated she was doing fine. She filled her prescription and is taking her medications as directed. Her follow up appointment with PCP, Dr Silva, is 08/03/[address] Martins, endocrinology, is 08/05/18. She will see her head of strategy in August. She stated that she is usually very good about keeping track of when she takes her blood sugar medication, but was off her normal schedule due to a alliance party and took too much. Her blood sugar is currently more unstable than usual but normalizing. She was very happy with her care and food at [facility]. No other questions or concerns.
== END 2018-07-27 16:55 | disposition home or self-care (01) | DRG 638 ==
LOC: SED 16:10 → STU 20:07
PROVIDERS: ADMIT Internal Medicine Cardiovascular Disease; ATTEND Internal Medicine Cardiovascular Disease
DX: E11.649 Type 2 diabetes mellitus with hypoglycemia without coma (principal); N39.0 Urinary tract infection, site not specified; I10 Essential (primary) hypertension; I48.0 Paroxysmal atrial fibrillation; I48.2 Chronic atrial fibrillation; Z79.01 Long term (current) use of anticoagulants; Z79.4 Long term (current) use of insulin; Z79.899 Other long term (current) drug therapy; Z88.0 Allergy status to penicillin
CPT/HCPCS: 36415; 80053; 81000-TC; 82150-TC; 82962; 83036; 83605; 83690-TC; 83880; 84443-TC; 84484; 85025; 85610-TC; 85730-TC; 87040-TC; 87086; 93005; 93306; 96361; 96365; 96375; 99285; G0378; J1815; J1956; J7030

== ENCOUNTER 2021-01-31 19:07 | Emergency (ER) | payer BC, OTHER ==
[~2021-01-31] VITALS: Ht 167.6 cm; Wt 81.6 kg
[~2021-01-31 19:07] MED LIST changes: -ALBI50PE SQ; -INSU100I20 SQ; +INSU100I24 SQ; +LEVO250T58 PO; +MECL-225 PO; -MECL12.584 PO
[2021-01-31 19:37] VITALS: BP_SYST 146
[2021-01-31] MEDS ORDERED: ONDANSETRON 4 MG ODT TAB PO ONE (19:45)
[2021-01-31] MEDS ORDERED: MORPHINE 2 MG/ML INJ. SYRINGE IM ONE (19:45)
--- NOTE | 2021-01-31 19:48 | NUR ---
Patient to ER bed 7 to gown for evaluation. Side rails up.
--- NOTE | 2021-01-31 19:50 | NUR ---
Dr. Nicholson bedside for pt eval
--- NOTE | 2021-01-31 19:51 | NUR ---
Pt BIB family to ED C/O left shoulder pain status post mechanical fall approximately 1 hour prior to arrival. 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 She is now complaining of 10/10 in severity, constant and nonradiating pain. She denies any head trauma, neck pain, back pain or any extremity pain or weakness. There is clavicle deformity noted
--- NOTE | 2021-01-31 19:52 | NUR ---
Pt taken to Radiology in stable condition
--- NOTE | 2021-01-31 20:16 | NUR ---
Pt back from Radiology, well tolerated
--- NOTE | 2021-01-31 20:19 | NUR ---
Pt's son has yet to return to ED
[2021-01-31] MEDS ORDERED: ACET325T PO (20:31)
--- NOTE | 2021-01-31 20:42 | NUR ---
Pt walked to and from restroom, well tolerated
[2021-01-31 21:05] VITALS: BP_SYST 146
--- NOTE | 2021-01-31 21:05 | NUR ---
Patient given written and verbal discharge instructions and verbalizes understanding. ER MD discussed with patient the results and treatment provided. Patient in stable condition. ID arm band removed. Rx of Tylenol given. Patient educated on pain management and to follow up with PMD. Pain Scale 0/10 Opportunity for questions provided and answered. Medication side effect fact sheet provided.
== END 2021-01-31 21:05 | disposition home or self-care (01) ==
LOC: SED 19:07
DX: S42.002A Fracture of unspecified part of left clavicle, initial encounter for closed fracture (principal); Z88.0 Allergy status to penicillin; I10 Essential (primary) hypertension; E11.9 Type 2 diabetes mellitus without complications; I48.91 Unspecified atrial fibrillation; Z79.899 Other long term (current) drug therapy; W18.39XA Other fall on same level, initial encounter; Y93.89 Activity, other specified; Y92.89 Other specified places as the place of occurrence of the external cause; Y99.8 Other external cause status
CPT/HCPCS: 29105; 73030; 96372; 99283; J2270; Q0162